=== PATIENT | male | born 1950 | race Caucasian/White ===

== ENCOUNTER 2021-07-27 14:32 | Emergency (ER) | payer OTHER, SELFPAY ==
[2021-07-27 14:34] VITALS: BP 139/70; PULSE 78; RESP 14; TEMP 36.4; O2SAT 96; BMI 25.0
--- NOTE | 2021-07-27 14:41 | EKG12_ITS ---
Test Reason : SYNCOPE Blood Pressure : / mmHG Vent. Rate : 079 BPM Atrial Rate : 079 BPM P-R Int : 174 ms QRS Dur : 112 ms QT Int : 392 ms P-R-T Axes : 031 -61 058 degrees QTc Int : 449 ms Normal sinus rhythm Left anterior fascicular block Voltage criteria for left ventricular hypertrophy Septal VA, age undetermined, cannot be excluded Abnormal ECG Confirmed by KATHERYN PORTILLO, ISREAL ([id number]), editor school photograph MARIA EUGENIA GARCIA ([id number]) on 07/29/2021 9:46:58 AM Referred By: JUMNAA Confirmed By:ISREAL CAMPA MD
--- NOTE | 2021-07-27 14:59 | EX.ED.DYSGE1 ---
HPI History of Present Illness Chief Complaint: Chest Pain Detail of Chief Complaint: Syncopal episode x2 Informant: patient and EMS Onset/Context/Timing Onset: Today Context: Sudden Onset Timing: Intermittent Quality: Syncopal episode Location: After bike ride, 63 miles Current Severity: Orthostatic Maximum Severity: When standing Worsened by: Poor p.o. intake Relieved by: Supine position Associated Symptoms Associated Symptoms: Nausea Narrative Narrative: Patient is a healthy 70-year-old male who was on a 63 mile bike ride. Patient states he averaged 18 mph. He had significant elevation climb of 2000 feet. Patient states he had 2 cups of coffee and blueberries in the morning. He consumed 224 ounce bottles of water. He states he had a syncopal episode after the bike ride and had a second sip couple episode while sitting in his truck in an upright position. He denied chest pain. He denied shortness of breath. He denied vomiting. He denied recent black or maroon-colored stool. Patient states he is thirsty and dry mouth. Prior similar symptoms: No Recent Illness/Hospitalization: No PFSH PFSH no medical history Home Medications NK 07/27/21 [History Last Taken Unknown] Allergy/AdvReac Type Severity Reaction Status Date / Time No Known Allergies Allergy Verified 07/27/21 14:37 no significant family history Social History (Updated 07/27/21 @ 15:[address] Baudilio Robb MD) household members: none Smoking Status: Never smoker alcohol intake: current alcohol intake frequency: other substance use type: does not use what type of physical activity do you participate in: bicycling frequency: 5-6 times per week ROS ROS ED Constitutional Constitutional ED: Denies chills, fever(s), subjective or sweats Eyes Eyes: Denies blurry vision or change in vision ENT ENT ED: Denies ear pain, rhinorrhea or sore throat Cardiovascular Cardiovascular: Denies chest pain or palpitations Respiratory/Chest Respiratory/Chest: Denies cough, dyspnea or sputum Gastrointestinal Gastrointestinal: Reports nausea; Denies abdominal pain or vomiting Musculoskeletal Musculoskeletal: Denies arthralgias or myalgias Integumentary Denies rash Neurologic Neurologic: Reports weakness; Denies headache(s) or paresthesias EXAM Physical Exam Const Vital Signs: 07/27/21 14:34 07/27/21 14:38 07/27/21 16:20 Temperature 97.6 F L Temperature Source Temporal Pulse Rate 78 77 Respiratory Rate 14 17 Respiratory Effort Normal Non-Labored Respiratory Pattern Normal Blood Pressure 139/70 H 131/78 H Blood Pressure Mean 93 95 Pulse Ox 96 98 Oxygen Delivery Method Room Air Room Air Positive well nourished and well developed General Appearance ED: well developed and NAD HEENT HEENT Narrative: Head is atraumatic normocephalic. Ears normal. Posterior pharynx no erythema or exudate. Eyes PERRL and EOMs intact bilaterally Eyes Narrative: There is no subconjunctival hemorrhage noted. General Eye ED: Negative for pale conjunctiva or scleral icterus Neck no lymphadenopathy, supple and no JVD Chest Wall inspection of chest normal Resp normal respiratory effort and clear to auscultation bilaterally Cardio regular rate, regular rhythm, S1 normal heart sound, S2 normal heart sound and no murmurs GI normal to inspection, nondistended, normoactive bowel sounds and non-tender Palpation: soft Back/Spine no CVA tenderness Extremity normal to inspection General Extremety ED: Negative for edema or tenderness General Extremity: Negative for edema Neuro oriented x3, CN's II-XII intact bilaterally and no sensory deficits noted Sensorium / Orientation: alert Motor Exam: strength 5/5 throughout Psych mental status grossly normal Skin no rashes or lesions noted and no wounds MDM MDM MDM Narrative Medical decision making narrative: Patient's history and physical is consistent with orthostatic hypotension due to hypovolemia. Will assess electrolytes to rule out acute kidney injury. 2 L of normal saline was ordered. EKG was performed and reveals a sinus rhythm. Lab Data Attestation: I reviewed the patient's lab results. Lab results narrative: Creatinine is elevated at 1.79. Apparently he had a 40 mile bike ride on Tuesday. He states he was dehydrated after that ride. Suspect his renal impairment is due to dehydration. He has been told he will need repeat blood work and to refrain from any strenuous bike rides until seen by his doctor. Labs: Laboratory Results - last 24 hr 07/27/21 14:40 Sodium 139 Potassium 4.7 Chloride 103 Carbon Dioxide 29.0 Anion Gap 7 BUN 23 H Creatinine 1.79 H Estim Creat Clear Calc 39.65 Est GFR (MDRD) Af Amer 48 L Est GFR (MDRD) Non-Af 40 L BUN/Creatinine Ratio 12.8 Glucose 129 H Calcium 9.7 EKG Initial EKG: Attestation: I personally reviewed and interpreted this EKG as follows: Interpretation: Sinus Rhythm (Normal sinus rhythm with a ventricular rate of 79. DC interval is 174 ms. Cures duration under 12 ms. QT duration 392 ms. [place] to the left. There is evidence of a left anterior fascicular block.) Discharge Plan Triage Chief Complaint: Chest Pain ED Provider: Baudilio Robb Dx/Rx/DC Orders Clinical Impression: Syncope and collapse, Hypovolemia dehydration, Acute renal insufficiency Prescriptions: No Action NK RF: 0 Primary Care Provider: Care Physician,No Primary Referrals: Care Physician,No Primary [Primary Care Provider] - Ashely Cain [employer], [employer] [NON-STAFF] - 07/31/21 9:00 am (Creatinine 1.79. Will need repeat electrolyte panel) Disposition Disposition: Home, Self Care
[2021-07-27 15:11] LABS: Anion Gap 7 (5-15); BUN 23 mg/dL (7-18); BUN/Creat Ratio 12.8 RATIO (10-20); Calcium,Total 9.7 mg/dL (8.5-10.1); Chloride 103 mmol/L (98-107); Creatinine, Serum 1.79 mg/dL (0.70-1.30); EST Glomerular Filtration Rate 40 mL/min (>60); Est Glom Filt Rate - Afr Amer 48 mL/min (>60); Estimated Creatinine Clearance 39.65 ml/min; Glucose 129 mg/dL (74-106); Potassium 4.7 mmol/L (3.5-5.1); Sodium Level 139 mmol/L (136-145)
[2021-07-27 16:20] VITALS: BP 131/78; PULSE 77; RESP 17; O2SAT 98
[2021-07-27] MEDS: 0.9% Normal Saline 1,000 ML 1000 ML IV ×2 (16:25→17:05)
[2021-07-27 18:10] VITALS: BP 153/93; PULSE 73; RESP 14; O2SAT 98
== END 2021-07-27 18:11 | disposition home or self-care (01) ==
PROVIDERS: Emergency Provider Emergency Medicine
DX: R55 Syncope and collapse (principal); E86.1 Hypovolemia; E86.0 Dehydration; N28.9 Disorder of kidney and ureter, unspecified
CPT/HCPCS: 80048; 93005; 96360; 99285; J7030; A4216